=== PATIENT | female | born 1995 | race Caucasian/White ===

== ENCOUNTER 2016-08-10 09:19 | Emergency (ER) | payer OTHER ==
[~2016-08-10] VITALS: Ht 162.6 cm; Wt 62.7 kg
[~2016-08-10 09:19] MED LIST: CEPHALEXIN500 M1 PO; DOXYCYCLINE 10100 MG PO; MACROBID 1100 MG/CAP PO; NEXPLANON68 MG ID; NO HOME MEDICATIONS; PREDNISONE20 MG PO; PRENATAL1 TA1 PO; SEPTRA DS 8001 TAB PO; SUDAFED60 MG PO
[2016-08-10] MEDS ORDERED: SPRINTEC 35 MCG1 TAB PO (09:24)
[2016-08-10] MEDS ORDERED: DOXYCYCLINE 10100 MG PO (09:53)
[2016-08-10 10:16] VITALS: BP 118/84; PULSE 68; TEMP 98.2
== END 2016-08-10 10:16 | disposition home or self-care (01) ==
LOC: COL.ER 09:19
DX: K06.8 Other specified disorders of gingiva and edentulous alveolar ridge (principal)

== ENCOUNTER 2017-06-29 04:19 | Emergency (ER) | payer SELFPAY ==
[~2017-06-29] VITALS: Ht 167.6 cm; Wt 68.2 kg
[~2017-06-29 04:19] MED LIST changes: +SPRINTEC 35 MCG1 TAB PO
[2017-06-29] MEDS ORDERED: FLEXERIL 1010 MG/TAB PO (06:06)
[2017-06-29 06:13] VITALS: BP 113/62; PULSE 84; TEMP 98.2
== END 2017-06-29 06:14 | disposition home or self-care (01) ==
LOC: COL.ER 04:19
DX: S16.1XXA Strain of muscle, fascia and tendon at neck level, initial encounter (principal); S29.012A Strain of muscle and tendon of back wall of thorax, initial encounter; S40.211A Abrasion of right shoulder, initial encounter; F17.210 Nicotine dependence, cigarettes, uncomplicated; Z90.89 Acquired absence of other organs; Y04.0XXA Assault by unarmed brawl or fight, initial encounter

== ENCOUNTER 2017-09-11 00:09 | Emergency (ER) | payer SELFPAY ==
[~2017-09-11] VITALS: Ht 167.6 cm; Wt 68.2 kg
[~2017-09-11 00:09] MED LIST changes: +FLEXERIL 1010 MG/TAB PO
[2017-09-11 00:18] VITALS: BP 119/74; PULSE 104; TEMP 100
[2017-09-11] MEDS ORDERED: PROAIR HFA0.09 MG/AC IH (00:22)
== END 2017-09-11 01:44 | disposition home or self-care (01) ==
LOC: COL.ER 00:09
DX: J02.9 Acute pharyngitis, unspecified (principal); J45.909 Unspecified asthma, uncomplicated
CPT/HCPCS: J0561

== ENCOUNTER 2018-03-29 16:51 | Emergency (ER) | payer SELFPAY ==
[~2018-03-29] VITALS: Ht 167.6 cm; Wt 69.1 kg
[~2018-03-29 16:51] MED LIST changes: +PROAIR HFA0.09 MG/AC IH
[2018-03-29 17:35] LABS: COLLECTION METHOD CLEAN CATCH
[2018-03-29 17:42] LABS: MUCOUS Present /lpf; PH 6 (5-8); SQUAMOUS EPITHELIAL 0-2 /hpf; URINE APPEARANCE Clear; URINE BACTERIA None Seen /hpf; URINE BILIRUBIN Negative (NEGATIVE); URINE BLOOD 1+ (NEGATIVE); URINE COLOR Yellow; URINE GLUCOSE Negative (NEGATIVE); URINE KETONE Negative (NEGATIVE); URINE LEUKOCYTE ESTERASE Negative (NEGATIVE); URINE NITRATE Negative (NEGATIVE); URINE PROTEIN(semi-quant) Negative (NEGATIVE); URINE UROBILINOGEN Negative (NEGATIVE)
[2018-03-29] MEDS ORDERED: CEPHALEXIN500 M1 PO (18:01)
[2018-03-29 18:25] VITALS: BP 150/70; PULSE 66; TEMP 99.2
== END 2018-03-29 18:25 | disposition home or self-care (01) ==
LOC: COL.ER 16:51
PROVIDERS: Physician Assistant
DX: J02.0 Streptococcal pharyngitis (principal); J45.909 Unspecified asthma, uncomplicated; Z90.89 Acquired absence of other organs

== ENCOUNTER 2018-04-20 21:57 | Emergency (ER) | payer SELFPAY ==
[~2018-04-20] VITALS: Ht 167.6 cm; Wt 67.3 kg
[2018-04-20 22:01] VITALS: BP 123/72; TEMP 98.5
[2018-04-20 23:18] LABS: COLLECTION METHOD CLEAN CATCH
[2018-04-20 23:31] LABS: MUCOUS Present /lpf; PH 6 (5-8); URINE APPEARANCE Hazy; URINE BACTERIA None Seen /hpf; URINE BILIRUBIN Negative (NEGATIVE); URINE BLOOD Negative (NEGATIVE); URINE COLOR Yellow; URINE GLUCOSE Negative (NEGATIVE); URINE KETONE Trace (NEGATIVE); URINE LEUKOCYTE ESTERASE Trace (NEGATIVE); URINE NITRATE Negative (NEGATIVE); URINE PROTEIN(semi-quant) 1+ (NEGATIVE)
[2018-04-21 01:07] LABS: COLLECTION METHOD CATHETER
[2018-04-21 01:10] LABS: BASO % 0.3 % (0.0-2.0); EOS # 0.1 (0.0-0.7); GRAN # 7.7 (1.4-6.5); GRAN % 67.6 % (42.2-75.2); HEMATOCRIT 39.3 % (37.0-47.0); HEMOGLOBIN 13.8 g/dl (12.5-16.0); LYMPH # 2.8 (1.2-3.4); LYMPH % 24.8 % (20.0-51.0); MEAN CELL VOLUME 92 fl (80.0-100.0); MEAN CORPUSCULAR HEMOGLOBIN 32 pg (27.0-31.0); MEAN CORPUSCULAR HGB CONC 35 g/dl (33.0-37.0); MONO # 0.7 (0.1-0.6); MONO % 6.1 % (1.7-9.3); PLATELET COUNT 213 K/mm3 (130-400); RED BLOOD COUNT 4.28 M/mm3 (4.10-5.30); REDCELL DISTRIBUTION WIDTH-CV 11.3 % (11.5-14.5)
[2018-04-21 01:20] LABS: MUCOUS Present /lpf; PH 5 (5-8); URINE APPEARANCE Clear; URINE BACTERIA None Seen /hpf; URINE BILIRUBIN Negative (NEGATIVE); URINE BLOOD 1+ (NEGATIVE); URINE COLOR Yellow; URINE GLUCOSE Negative (NEGATIVE); URINE KETONE 2+ (NEGATIVE); URINE LEUKOCYTE ESTERASE Negative (NEGATIVE); URINE NITRATE Negative (NEGATIVE); URINE PROTEIN(semi-quant) 1+ (NEGATIVE)
[2018-04-21 01:24] LABS: ALBUMIN 4.1 gm/dL (3.5-5.0); BILIRUBIN,TOTAL 0.4 mg/dL (0.0-1.0); CALCIUM 8.8 mg/dL (8.4-10.2); CREATININE, serum 0.59 mg/dL (0.52-1.25); POTASSIUM 3.3 mmol/L (3.4-5.0); TOTAL PROTEIN 7.7 gm/dL (6.4-8.2)
[2018-04-21] MEDS ORDERED: PHENERGAN 25 TA25 MG PO (02:35)
[2018-04-21 02:50] VITALS: PULSE 75
== END 2018-04-21 02:52 | disposition home or self-care (01) ==
LOC: COL.ER 21:57
PROVIDERS: Nurse Practitioner
DX: O21.9 Vomiting of pregnancy, unspecified (principal); O26.891 Other specified pregnancy related conditions, first trimester; O99.511 Diseases of the respiratory system complicating pregnancy, first trimester; R10.9 Unspecified abdominal pain; J45.909 Unspecified asthma, uncomplicated; Z3A.10 10 weeks gestation of pregnancy; Z87.891 Personal history of nicotine dependence
CPT/HCPCS: J2550; J7030

== ENCOUNTER → 2018-04-26 | Outpatient (CLI) | payer SELFPAY ==
[~2018-04-26] MED LIST changes: +PHENERGAN 25 TA25 MG PO
== END ==
LOC: COL.RAD 13:14
DX: Z34.91 Encounter for supervision of normal pregnancy, unspecified, first trimester (principal); Z3A.09 9 weeks gestation of pregnancy

== ENCOUNTER 2018-11-08 06:20 | Inpatient (IN) | payer MEDICAID ==
[~2018-11-08] VITALS: Ht 165.1 cm; Wt 85.0 kg
[2018-11-14] VITALS (47 sets, daily range): BP systolic 95–138; BP diastolic 52–87; PULSE 71–107; TEMP 98.1–98.3
[2018-11-14] MEDS ORDERED: PRENATAL MVI (07:27)
[2018-11-14] MEDS ORDERED: PROAIR HFA0.09 MG/AC IH (07:27)
--- NOTE | 2018-11-14 07:30 | NUR ---
G2L1 at 39.6 weeks gestation to LDR6 with boyfriend for induction of labor. She has had LPNC at 30 weeks gestation. Patient changed into gown and wedged to left side. EFMs explained and applied. FHR 150 bpm and minimal variability. No CTX per toco and patient reports. VSS. IV started in left wrist with labs drawn from site. LR infusing per protocol. Plan of care reviewed.
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
[2018-11-14 08:11] LABS: BASO % 0.2 % (0.0-2.0); EOS # 0.2 (0.0-0.7); EOS % 1.3 % (0-4.0); HEMOGLOBIN 10.7 g/dl (12.5-16.0); LYMPH # 2.4 (1.2-3.4); LYMPH % 19.1 % (20.0-51.0); MEAN CELL VOLUME 94 fl (80.0-100.0); MEAN CORPUSCULAR HEMOGLOBIN 32 pg (27.0-31.0); MEAN CORPUSCULAR HGB CONC 33 g/dl (33.0-37.0); MEAN PLATELET VOLUME 10.2 fl (7.4-10.4); MONO % 7.8 % (1.7-9.3); PLATELET COUNT 184 K/mm3 (130-400); REDCELL DISTRIBUTION WIDTH-CV 12.5 % (11.5-14.5)
--- NOTE | 2018-11-14 08:30 | NUR ---
Dr. Farrell to unit, reviews FHR tracing and orders to start pitocin received. Dr. Farrell to room, SVE with AROM. /-3 with small amount of clear fluid noted. Pitocin started at 2mu per orders and protocol. Plan of care reviewed with patient.
[2018-11-14] MEDS ORDERED: PERCOCET 325 MG1 TA2 PO (08:46)
[2018-11-14] MEDS ORDERED: MOTRIN 800800 MG/TAB PO (08:46)
[2018-11-14 09:11] LABS: TRICYCLIC ANTIDEPRESS URINE NEGATIVE
--- NOTE | 2018-11-14 14:45 | NUR ---
Patient more uncomfortable with contractions, breathing through them. Request epidural. IVF bolus started. PHARMACOGNOSIST notified.
--- NOTE | 2018-11-14 15:14 | NUR ---
1510 Hamzah, DISCOVERY GUIDE to room to place epidural. Patient sits upright on the side of the bed for procedure. Single shot administered at 1514 - see anesthesia record for details of epidural placement. 1520 Patient wedged to left side.
--- NOTE | 2018-11-14 16:12 | NUR ---
[id number] recurrent late decelerations noted. 1545 SVE 3/-2. Perez catheter placed. 1600 Dr. Farrell to room, reviews FHR tracing, SVE with no change. Patient turned to high right side and then high left side. 1608 BP: 95/51. Recurrent late decelarations continue, Dr. Farrell remains on unit. 1612 10mg of ephedrine given IVP. Repeat BP: 124/58.
--- NOTE | 2018-11-14 16:35 | NUR ---
FHR deceleration down to 60 bpm over [address] Farrell on unit and to patient room. SVE 4/90/-2, bloody show noted with exam. Patient turned to high left side.
--- NOTE | 2018-11-14 17:30 | NUR ---
This nurse discussed the orders for baby to have a UDS after delivery due to late care. Informed patient that there is the possibility of a false positive with the medication, ephedrine, that she receieved for her low blood pressure during labor. Patient tearful during the conversation. Nursery RN notified of ephedrine given during labor.
--- NOTE | 2018-11-14 18:00 | NUR ---
1800- Bedside shift report received at this time from Edith Snyder RN. Patient crying at this time with this nurse and Edith Snyder RN at bedside discussing dose of epinephrine during labor and collecting a UDS on the baby after . Patient crying, and stating that she would have refused the ephedrine at this time due to the possibility of the baby's UDS coming back positive. She began to discribe her sister's situation with her baby after it was born, patient is anxious and fearfull at this time. RN's comfort, listen and answer questions at this time. Patient began to calm down and started to rest. Further discussion will take place once the baby is born and patient verbalized understanding. Patient denies any further needs at this time.
--- NOTE | 2018-11-14 19:10 | NUR ---
0- Dr. Farrell at bedside 1912- SVE 10cm per Dr. Farrell at this time. Patient placed in lithotomy and instructed on pushing. 1919- Initial push 1928- Delivery of viable male at this time. Placed on patient's chest, dried and stimulated. [place] and crying. 1930- Delivery of intact placenta, pitocin rapidly infusing per Dr. Farrells verbal order. Apgars 8/9/9/ Ebl 200. No laceration degree.
[2018-11-15 04:50] VITALS: BP 90/53; PULSE 79; TEMP 98.4
[2018-11-15 08:00] VITALS: BP 99/64; PULSE 89; TEMP 98.8
--- NOTE | 2018-11-15 09:46 | NUR ---
Initial visit; Parents thanked Ear Nose Throat Physician for offering congratulations and Gods blessings for their family. Ear Nose Throat Physician thanked them for choosing our hospital.
--- NOTE | 2018-11-15 14:02 | NUR ---
SELENE and SELENE saldana responded to OB consult. The patient had late care and a history of drug abuse. SELENE and SELENE saldana then met with the patient and her boyfriend (father of baby). The patient reports that she lives in [place] with her boyfriend. She reports also having a [id number] son. She states that she has joint custody of him with her ex- and that he is with her ex- now. She states that he will be coming back to live with her soon. She states that she has a carseat and all supplies needed. She states that she does not have WIC set up yet, but she has their contact information. SELENE addressed the late care. The patient reports that she had applied for Medicaid early in at the [facility], but that the woman she filed it with (Raisa) did not submit it. She states that she then filed a complaint and re-applied and was finally approved for it around 30 weeks. She states she could not afford to private pay. SELENE then addressed her history of marijuana use. The patient reports that she does not have a history of it. She states that she only tried it once or twice in the past and that this was when she was living in [place]. The patient had no questions or concerns for SW. A family packet was provided to the patient. The patient's urine drug screen was negative. The baby's urine drug screen came back positive for Methamphetamines. Due to medications that were given to the patient during labor, which could have affected the baby's urine drug screen, the baby's urine was sent to [place] to test. The nurses are to inform SELENE when they get the report.
[2018-11-15 15:48] VITALS: BP 109/51; PULSE 84; TEMP 98.3
[2018-11-15 19:55] VITALS: BP 108/62; PULSE 94; TEMP 98.2
[2018-11-16 07:05] VITALS: BP 117/51; PULSE 95; TEMP 98.8
== END 2018-11-16 13:35 | disposition home or self-care (01) | DRG 807 ==
LOC: LDR 06:20 → OB 11-14 07:07 → LDR 11-14 07:27 → OB 11-14 21:49
PROVIDERS: Obstetrics & Gynecology; ADMIT Student in an Organized Health Care Education/Training Program
PROC: 10E0XZZ Delivery of Products of Conception, External Approach (ICD-10-PCS; principal; 2018-11-14)
PROC: 10907ZC Drainage of Amniotic Fluid, Therapeutic from Products of Conception, Via Natural or Artificial Opening (ICD-10-PCS; 2018-11-14)
PROC: 3E033VJ Introduction of Other Hormone into Peripheral Vein, Percutaneous Approach (ICD-10-PCS; 2018-11-14)
PROC: 0UQMXZZ Repair Vulva, External Approach (ICD-10-PCS; 2018-11-14)
DX: O70.0 First degree perineal laceration during delivery (principal); Z37.0 Single live birth; Z3A.39 39 weeks gestation of pregnancy; O75.89 Other specified complications of labor and delivery; J45.909 Unspecified asthma, uncomplicated; K21.9 Gastro-esophageal reflux disease without esophagitis; O76 Abnormality in fetal heart rate and rhythm complicating labor and delivery
CPT/HCPCS: J2590; J2795; J7120

== ENCOUNTER 2019-03-30 22:15 | Emergency (ER) | payer MEDICAID ==
[~2019-03-30] VITALS: Ht 167.6 cm; Wt 75.0 kg
[~2019-03-30 22:15] MED LIST changes: +MOTRIN 800800 MG/TAB PO; +PERCOCET 325 MG1 TA2 PO; +PRENATAL MVI
[2019-03-30 22:25] VITALS: BP 119/57; TEMP 98.1
[2019-03-30 23:30] LABS: BASO # 0.1 (0.0-0.2); BASO % 0.6 % (0.0-2.0); EOS # 0.2 (0.0-0.7); GRAN # 5.4 (1.4-6.5); GRAN % 54.7 % (42.2-75.2); HEMATOCRIT 39.7 % (37.0-47.0); HEMOGLOBIN 13.1 g/dl (12.5-16.0); LYMPH # 3.5 (1.2-3.4); MEAN CELL VOLUME 95 fl (80.0-100.0); MEAN CORPUSCULAR HEMOGLOBIN 31 pg (27.0-31.0); MEAN CORPUSCULAR HGB CONC 33 g/dl (33.0-37.0); MEAN PLATELET VOLUME 10.9 fl (7.4-10.4); MONO # 0.7 (0.1-0.6); MONO % 7.5 % (1.7-9.3); PLATELET COUNT 206 K/mm3 (130-400); REDCELL DISTRIBUTION WIDTH-CV 12.2 % (11.5-14.5)
[2019-03-30 23:42] LABS: ALBUMIN 4.2 gm/dL (3.5-5.0); BILIRUBIN,TOTAL 0.2 mg/dL (0.0-1.0); CALCIUM 8.9 mg/dL (8.4-10.2); CREATININE, serum 0.74 (0.52-1.25); TOTAL PROTEIN 7.3 gm/dL (6.4-8.2)
[2019-03-31 00:26] LABS: POTASSIUM 3.5 mmol/L (3.4-5.0)
[2019-03-31 01:06] VITALS: PULSE 77
== END 2019-03-31 01:08 | disposition home or self-care (01) ==
LOC: COL.ER 22:15
PROVIDERS: Emergency Medicine
DX: R53.81 Other malaise (principal); J45.909 Unspecified asthma, uncomplicated
CPT/HCPCS: J1885; J2405; J7030

== ENCOUNTER 2021-09-05 19:11 | Emergency (ER) | payer SELFPAY ==
[~2021-09-05] VITALS: Ht 167.6 cm; Wt 84.5 kg
[2021-09-05 22:11] VITALS: BP 122/58; PULSE 88; TEMP 99.4
== END 2021-09-05 22:11 | disposition home or self-care (01) ==
LOC: COL.ER 19:11
DX: O98.519 Other viral diseases complicating pregnancy, unspecified trimester (principal); U07.1 COVID-19; Z87.891 Personal history of nicotine dependence; Z3A.00 Weeks of gestation of pregnancy not specified

== ENCOUNTER 2021-11-21 16:25 | Observation (INO) | payer MEDICAID ==
[~2021-11-21] VITALS: Ht 152.4 cm; Wt 84.0 kg
[~2021-11-21 16:25] MED LIST changes: +AMOXICILLIN 8751 TAB PO; +NAPROSYN500 MG PO
[2021-11-21 17:24] LABS: COLLECTION METHOD CLEAN CATCH
[2021-11-21 17:26] LABS: BASO % 0.3 % (0.0-2.0); EOS # 0.1 K/mm3 (0.0-0.7); GRAN # 6.4 K/mm3 (1.4-6.5); HEMATOCRIT 40.5 % (37.0-47.0); HEMOGLOBIN 13.8 g/dl (12.5-16.0); LYMPH # 1.9 K/mm3 (1.2-3.4); LYMPH % 20.8 % (20.0-51.0); MEAN CELL VOLUME 92 fl (80.0-100.0); MEAN CORPUSCULAR HEMOGLOBIN 31 pg (27-31); MEAN CORPUSCULAR HGB CONC 34 g/dl (33.0-37.0); MEAN PLATELET VOLUME 10.9 fl (7.4-10.4); MONO # 0.8 K/mm3 (0.1-0.6); MONO % 8.6 % (1.7-9.3); PLATELET COUNT 228 K/mm3 (130-400); RED BLOOD COUNT 4.39 M/mm3 (4.10-5.30); REDCELL DISTRIBUTION WIDTH-CV 12.1 % (11.5-14.5)
[2021-11-21 17:30] LABS: MUCOUS Present (NOT PRESENT); PH 6 (5-8); URINE APPEARANCE Hazy (CLEAR/HAZY); URINE BACTERIA None Seen /hpf (NONE SEEN); URINE BILIRUBIN Negative (NEGATIVE); URINE BLOOD 2+ (NEGATIVE); URINE COLOR Amber (YELLOW); URINE GLUCOSE Negative (NEGATIVE); URINE KETONE Trace (NEGATIVE); URINE LEUKOCYTE ESTERASE Negative (NEGATIVE); URINE NITRATE Negative (NEGATIVE); URINE PROTEIN(semi-quant) 1+ (NEGATIVE); URINE RBC 20-50 /hpf (0-2)
[2021-11-21 17:43] LABS: ALANINE AMINOTRANSFERASE 148 U/L (0-55); ALBUMIN 4.1 gm/dL (3.5-5.0); ALKALINE PHOSPHATASE 145 U/L (40-150); ANION GAP 12 mmol/L (7-16); AST,SGOT 171 U/L (5-34); BILIRUBIN,TOTAL 2.2 mg/dL (0.2-1.2); BLOOD UREA NITROGEN 11 mg/dL (7-19); C-REACTIVE PROTEIN 1.29 mg/dL (0.00-0.50); CALCIUM 9.5 mg/dL (8.4-10.2); CARBON DIOXIDE 25 mmol/L (22-29); CHLORIDE 103 mmol/L (98-107); CREATININE, serum 0.79 mg/dL (0.57-1.11); GLUCOSE 96 mg/dL (70-99); LIPASE 17 U/L (8-78); POTASSIUM 3.4 mmol/L (3.5-4.5); SODIUM 140 mmol/L (136-145); TOTAL PROTEIN 7.1 gm/dL (6.2-8.1)
[2021-11-21 17:52] LABS: TROPONIN-I < 0.010 ng/mL (0.00-0.033)
[2021-11-22] VITALS (12 sets, daily range): BP systolic 92–131; BP diastolic 46–91; PULSE 49–67; TEMP 97.6–98.6
--- NOTE | 2021-11-22 04:07 | NUR ---
Patient arrived to the floor at approximately 2230, here for gallbladder removal. Full body assessment completed and vital signs have been WNL. Patient has had minimal pain throughout the shift. NPO orders were initiated, patient tolerated few ice chips well. Fluids are currently running, patient is able to void without difficulty; urine is yellow and no sediment is obvious. Patient ambulates independently and shows no signs of weakness or an unsteady gait. Patient is resting quietly in bed with TV on, no other complaints at this time. Call light within reach.
--- NOTE | 2021-11-22 04:51 | NUR ---
Patient complained of nausea and heartburn, PRN Zofran was administered. No other pain was reported. Will continue to monitor. Call light within reach.
--- NOTE | 2021-11-22 08:20 | NUR ---
Pt doing well this morning. Rating pain 1/10 at this time. Pt has been down for ultrasound. No needs verbalized. She is aware that she is to not have anything to eat or drink at this time
--- NOTE | 2021-11-22 10:46 | NUR ---
Water Conservationist met with patient to discuss discharge planning. Patient lives with her , Michael (ph#[phone]) and states she has a primary care physician on her insurance card, however has never met them. Patient obtains medications from [facility] and does not use any DME. Patient is independent with ADLS and plans to return home at time of discharge. Patient does not have Advance Directives and is not interested in designating DPOA-HC at this time. Discharge Plan: Home
--- NOTE | 2021-11-22 12:36 | NUR ---
Pt doing well with minimal pain complaints. She has been up and showered. Pt aware that she is going to surgery today, no needs verbalized, call light within reach
--- NOTE | 2021-11-22 13:12 | NUR ---
Pt going off the floor for surgery
[2021-11-22] MEDS ORDERED: PERCOCET 325 MG1 TA2 PO (15:09)
[2021-11-22] MEDS ORDERED: MOTRIN 600600 MG/TAB PO (15:10)
--- NOTE | 2021-11-22 16:25 | NUR ---
Pt arrived back to the floor from [place]. She is very sleepy with complaints of pain and nausea. Pt appears to be very uncomfortable. Attempted to lower her head down, but she had strong complaints of pain so put head back up. Pts is at the bedside. Pt quickly falls back asleep.
--- NOTE | 2021-11-22 18:42 | NUR ---
Pt more awake now, although is still drowsy. Educated her on postop care and discharge instructions. Pt was shocked to hear that she would be going home tonight and was planning on staying. Educated that she just needed to tolerate something to eat and use the restroom and she would be cleared to leave. Pt was drinking applejuice and eating crackers. Brought pain medication in, pt was hoping for IV pain medication, stated "what I got earlier makes me feel good." Informed pt that should be not be able to go home with IV pain medication, so once she can start eating and drinking, she can take oral pain pills. Pt then stated that she does feel a little nauseated and asked for nausea medication.
--- NOTE | 2021-11-22 23:24 | NUR ---
Patient had complaints of not being able to void urine. This nurse suggested thta the patient increase fluid intake as well as ambulate throughout the tena. Patient stated that this did not seem to help. Patient was bladder scanned which yielded 306ml of urine. Dr. Brenner was called [id number], orders for a straight cath were given. Procedure performed and output was approxmately 800ml at time of catheterization. Patient tolerated procedure well. No other complaints at this time. Call light within reach.
[2021-11-23 04:12] VITALS: BP 101/48; PULSE 55; TEMP 98.5
--- NOTE | 2021-11-23 05:00 | NUR ---
Patient has had difficulty urinating this evening postop. Straight cath order was given, patient tolerated procedure well. Patient has had minimal complaints of pain, this nurse only adminstered one dose of PRN pain medication. Patient was able to void on her own after catheterization. Tolerating oral intake well, occasional boughts of nausea in the beginning of the shift but have decreased as the evening progressing. Patient had no other complaints, call light within reach.
[2021-11-23 07:47] VITALS: BP 136/71; PULSE 66; TEMP 98.5
--- NOTE | 2021-11-23 08:13 | NUR ---
Pt doing well this morning. She is rating her pain 5/10, PRN pain medication given per request. Pt has breakfast, she is eating with no complaints. Started to review discharge instructions with her to include activity as well as prescriptions for pain medication. Pt verbalized understanding. Pt has been getting up independently, stated she is voiding without difficulty now. No other needs verbalized, call light within reach
--- NOTE | 2021-11-23 10:33 | NUR ---
Pt doing well, minimal pain complaints at this time. Reports the pain medication is helping and she is able to rest. Encouraged frequent ambulation.
[2021-11-23 11:30] VITALS: BP 102/43; PULSE 60; TEMP 98.7
--- NOTE | 2021-11-23 13:42 | NUR ---
Reviewed discharge instructions with pt and spouse. All questions answered, INT removed from left AC. Educated pt to notify nursing once she is dressed so that she can be escorted out
== END 2021-11-23 14:00 | disposition home or self-care (01) ==
LOC: COL.ER 16:25 → SURG 19:54 → EDBEDREQ 20:59 → SURG 11-23 14:00
PROVIDERS: Nurse Practitioner; ADMIT Surgery
DX: K81.2 Acute cholecystitis with chronic cholecystitis (principal); Z87.891 Personal history of nicotine dependence
CPT/HCPCS: G0378; J0690; J1100; J1170; J1885; J2250; J2405; J2543; J2550; J2704; J2710; J3010; J7030; J7120; Q9967